=== PATIENT | male | born 1980 | race Caucasian/White ===

== ENCOUNTER 2022-01-08 19:13 | Emergency (ER) | payer BC ==
[2022-01-08] MEDS ORDERED: Levofloxacin 750 MG Tab ONE (19:15)
[2022-01-08] MEDS ORDERED: Albuterol 8 GM Inhaler ONE (19:15)
[2022-01-08] MEDS ORDERED: Benzonatate 100 MG Cap ONE (19:15)
== END 2022-01-08 19:30 | disposition home or self-care (01) ==
LOC: EDBD 19:13 → LB.ED 19:13
DX: J45.30 Mild persistent asthma, uncomplicated (principal); J01.00 Acute maxillary sinusitis, unspecified; Z88.0 Allergy status to penicillin; Z20.822 Contact with and (suspected) exposure to COVID-19
CPT/HCPCS: 87635; 99283; A9270; U0002